=== PATIENT | male | born 1990 | race Caucasian/White ===

== ENCOUNTER 2017-04-25 21:19 | Emergency (ER) | payer BC, OTHER ==
[2017-04-25 21:25] VITALS: BP 136/86; PULSE 57; RESP 16; TEMP 98.8; O2SAT 99
[2017-04-25] MEDS ORDERED: TDAP ADULT 0.5 ML INJ (BOOSTRIX) IM ONE (22:08)
--- NOTE | 2017-04-25 22:14 | EDPHY ---
H & P Time Seen by Provider: 04/25/17 21:52 HPI/ROS: CHIEF COMPLAINT: Left middle finger injury HISTORY OF PRESENT ILLNESS: 26-year-old male presents to the emergency department by private vehicle with injury to his left middle finger. Patient states about 24 hours ago he crushed his left middle finger between 2 logs when he tripped. He did not hit his head or lose consciousness. He is right-hand dominant. States that he cleaned it with some water and put antibiotic ointment and wrapped with a wet paper towel. He is unsure of his last tetanus shot. He describes the pain as mild. He has been taking ibuprofen. ROS: Denies numbness or tingling in his fingers, retained foreign body. Past Medical/Surgical History: Negative Social History: Single, structural steel erector Smoking Status: Never smoked Physical Exam: On examination the patient has subungual hematoma noted to the left 3rd finger. He has nail is completely avulsed and intact the very distal aspect. He has a superficial laceration to the distal, lateral aspect of the left 3rd finger. Laceration does not extend into the D IP joint. Mild palpable bony tenderness to the very distal tip of the finger. The other fingers do not appear injured. Full flexion and extension of his fingers. Normal sensation to light touch with normal 2 point discrimination. Constitutional: Initial Vital Signs Temperature (C) 37.1 C 04/25/17 21:23 Heart Rate 57 L 04/25/17 21:23 Respiratory Rate 16 04/25/17 21:23 Blood Pressure 136/86 H 04/25/17 21:23 O2 Sat (%) 99 04/25/17 21:23 O2 Delivery Mode Room Air Allergies/Adverse Reactions: No Known Allergies Allergy (Verified 04/25/17 21:26) Home Medications: Medication Instructions Recorded Cephalexin [Keflex] 500 mg PO QID #28 cap 04/25/17 MDM/Departure - MDM Imaging Results: Imaging Impressions Finger X-Ray 04/25/17 22:07 Impression: Negative. No acute fracture or foreign body. Imaging: I viewed and interpreted images myself Procedures: Laceration repair. Verbal consent was obtained from the patient. The 2 cm laceration on the left middle finger was anesthetized using digital block using 1% lidocaine without epinephrine 0.5% bupivacaine without epinephrine. The wound was irrigated with saline, draped and explored to its base with a gloved finger. There were no deep structures involved. No tendon injury was identified. The wound was repaired with 4 0 Ethilon, 2 sutures to anchor nail in place.. The wound repair was simple. The procedure was performed by myself. Electrocautery was also used to drain subungual hematoma. Medications Given: Discontinued Medications Diphtheria/Tetanus/Acell Pertussis (Boostrix) 0.5 ml IM .ONCE ONE Stop: 04/25/17 22:09 Last Admin: 04/25/17 22:22 Dose: 0.5 ml ED Course/Re-evaluation: 26-year-old male presents to the emergency department with injury to his left middle finger. X-rays reveal no fractures. Patient had a nail avulsion as well as a subungual hematoma. The wound was repaired, see procedure note. The case was discussed with Dr. Vinicius Cifuentes, secondary supervising physician, who did not directly evaluate the patient but agrees with treatment and plan. The patient does present to the emergency department 24 hours after his injury. He is aware of the risk of infection. I did explain however because the nail is avulsed, it would be best to place this back underneath the eponychial fold stitches back into place. He is aware of the risks associated with this. He will be placed on Keflex. The wound does appear clean. His tetanus shot was updated. - Depart Disposition: Home, Routine, Self-Care Clinical Impression: Nail avulsion, finger Qualifiers: Encounter type: initial encounter Qualified Code(s): S61.309A - Unspecified open wound of unspecified finger with damage to nail, initial encounter Contusion of left middle finger Qualifiers: Encounter type: initial encounter Damage to nail status: with damage Qualified Code(s): S60.132A - Contusion of left middle finger with damage to nail, initial encounter Subungual hematoma of finger Qualifiers: Encounter type: initial encounter Qualified Code(s): S60.10XA - Contusion of unspecified finger with damage to nail, initial encounter Condition: Fair Instructions: Contusion in Adults (ED), Nail Avulsion (ED), Acute Wounds (ED), Care For Your Stitches (ED) Additional Instructions: Wound Care Follow-Up: Removal of sutures in 10 days. Suture removal is complimentary in uncomplicated cases. Infection or abnormal findings would require reevaluation by the MD. In that case, you may be billed. Return if he notices any signs or symptoms of infection such as redness, swelling, increased pain, fever, purulent drainage. Keflex 500 mg 4 times daily for 1 week to prevent infection. Your tetanus shot was updated in the emergency department. Ibuprofen 600 mg every 8 hours as needed for pain. Prescriptions: Cephalexin [Keflex] 500 mg PO QID #28 cap Referrals: Kory Ricci MD [[facility] Primary Care Provider] - 2-3 days, if not improved ( Primary care provider utilization management rn)
[2017-04-25] MEDS ORDERED: CEPHALEXIN 500MG PREPACK#4 BTL TAKEHOME ONE (23:10)
== END 2017-04-25 23:34 | disposition home or self-care (01) ==
DX: S61.303A Unspecified open wound of left middle finger with damage to nail, initial encounter (principal); S60.132A Contusion of left middle finger with damage to nail, initial encounter; Z23 Encounter for immunization; W23.1XXA Caught, crushed, jammed, or pinched between stationary objects, initial encounter